=== PATIENT | female | born 1955 | race Caucasian/White ===

== ENCOUNTER 2023-08-09 11:06 | Inpatient (IN) | payer MEDICARE, OTHER ==
[~2023-08-09] VITALS: Ht 152.4 cm; Wt 101.0 kg
[2023-08-09 12:44] LABS: BASOPHILS % (AUTO) 0.6 % (0.0-2.0); EOSINOPHILS % (AUTO) 5.1 % (1.0-6.0); HEMATOCRIT 42.1 % (36-46); LYMPHOCYTES % (AUTO) 23.3 % (22.0-44.0); MEAN CORPUSCULAR HEMOGLOBIN 34.5 pg (26.0-34.0); MEAN CORPUSCULAR HGB CONC 33.4 G/dL (31.0-37.0); MEAN CORPUSCULAR VOLUME 104 fL (80-100); MONOCYTES # (AUTO) 0.7 K/uL (0.1-1.0); MONOCYTES % (AUTO) 7.8 % (2.0-9.0); NEUTROPHILS # (AUTO) 5.6 K/uL (1.8-7.7); NEUTROPHILS % (AUTO) 63.2 % (40.0-70.0); RED BLOOD CELL COUNT(AUTO) 4.06 MIL/uL (4.00-5.20); RED CELL DISTRIBUTION WIDTH 14.4 % (11.5-14.5); WHITE BLOOD COUNT (AUTO) 8.8 K/uL (4.5-11.0)
[2023-08-09 12:53] LABS: ANION GAP 10 mmol/L (8-16); CALCIUM, TOTAL 8.8 mg/dL (8.8-10.5); CARBON DIOXIDE 22 mmol/L (22-29); CHLORIDE 108 mmol/L (98-107); CREATININE 0.55 mg/dL (0.60-1.30); GLOMERULAR FILTR. RATE CALC > 60 mL/min (>60); GLUCOSE,RANDOM 97 mg/dL (70-110); SODIUM SERUM 140 mmol/L (136-145); UREA NITROGEN, BLOOD 12 mg/dL (7-18)
[2023-08-09 12:59] LABS: ALANINE AMINOTRANSFERASE 13 U/L (12-78); ALKALINE PHOSPHATASE 97 U/L (46-116); ASPARTATE AMINOTRANSFERASE 14 U/L (15-37); BILIRUBIN,TOTAL 0.3 mg/dL (0.1-1.0)
[2023-08-09 13:02] LABS: LACTIC ACID 1.6 mmol/L (0.4-2.0)
[2023-08-09 13:07] LABS: PLATELET COUNT (AUTO) 219 K/uL (150-450); RBC MORPHOLOGY COMMENT ABNORMAL RBC MORPH
[2023-08-09 20:09] LABS: COVID AG,FIA SOURCE NASAL SWAB
[2023-08-09 20:14] LABS: APPEARANCE,URINE HAZY (CLEAR); BILIRUBIN,URINE NEGATIVE (NEGATIVE); COLOR,URINE YELLOW (YELLOW); GLUCOSE, URINE (UA) NEGATIVE (NEGATIVE); KETONES,URINE TRACE mg/dL (NEGATIVE); LEUKOCYTE ESTERASE ,URINE SMALL (NEGATIVE); NITRATE,URINE NEGATIVE (NEGATIVE); OCCULT BLOOD,URINE NEGATIVE (NEGATIVE); PH,URINE 7.5 (5.0-8.0); PH,URINE DRUG SCREEN 7.5 (5.0-8.0); PROTEIN,URINE NEGATIVE (NEGATIVE); SPECIFIC GRAVITIY, URINE 1.011 (1.003-1.030); UROBILINOGEN,URINE <=1.0 mg/dL (<=1.0)
[2023-08-09 20:23] LABS: AMPHET/METH SCREEN,URINE NEGATIVE (NEGATIVE); BARBITURATE SCREEN, URINE POSITIVE (NEGATIVE); BENZODIAZEPINES SCREEN,URINE NEGATIVE (NEGATIVE); CANNABINOID SCREEN,URINE NEGATIVE (NEGATIVE); COCAINE SCREEN,URINE NEGATIVE (NEGATIVE); METHADONE SCREEN, URINE NEGATIVE (NEGATIVE); OPIATE SCREEN,URINE NEGATIVE (NEGATIVE); PHENCYCLIDINE SCREEN,URINE NEGATIVE (NEGATIVE)
[2023-08-09 20:24] LABS: ALCOHOL, URINE DRUG SCREEN NEGATIVE (NEGATIVE); BACTERIA,URINE Moderate /HPF (None Seen); RBC,URINE 0-2 /HPF (0-2); SQUAMOUS EPITHELIAL CELL,UR Few /LPF (None Seen)
[2023-08-09 20:27] LABS: SARS-COV2 (COVID) ANTIGEN,FIA Negative (Negative)
[2023-08-09] MEDS ORDERED: KETOROLAC TROMETHAMINE 30 MG/ML VIAL IM ONE (22:45)
[2023-08-10 20:45] VITALS: PULSE 96; RESP 18; O2SAT 95
[2023-08-10] MEDS ORDERED: ALBUTEROL SULFATE HFA 90 MCG/PUFF 8 GM INHALER IH ONE (20:45)
[2023-08-10] MEDS ORDERED: APIXABAN 5 MG TABLET PO ONE (21:45)
[2023-08-10] MEDS ORDERED: ALBUTEROL SULFATE HFA 90 MCG/PUFF 8 GM INHALER IH PRN ×2 (21:45→22:45)
[2023-08-10] MEDS ORDERED: BUDESONIDE/FORMOTEROL FUMARATE 160-4.5 MCG/PUFF 10.2 GM INHALER IH ONE (21:45)
[2023-08-10] MEDS ORDERED: GuaiFENesin/D-METHORPHAN [SUGAR-FREE] 200-20MG/10 ML SYRUP UDCUP PO PRN (21:45)
[2023-08-10] MEDS ORDERED: LORazepam 2 MG TABLET PO PRN (21:45)
[2023-08-10] MEDS ORDERED: OMEPRAZOLE 20 MG CAPSULE PO ONE (21:45)
[2023-08-10] MEDS ORDERED: LOPERAMIDE HCL 2 MG CAPSULE PO PRN (21:45)
[2023-08-10] MEDS ORDERED: DIVALPROEX SODIUM 500 MG ER TABLET PO ONE (21:45)
[2023-08-10] MEDS ORDERED: ZOLPIDEM TARTRATE 10 MG TABLET PO PRN (21:45)
[2023-08-10] MEDS ORDERED: OLANZapine 5 MG RAPDIS TABLET PO ONE (21:45)
[2023-08-10] MEDS ORDERED: MELATONIN 3 MG TABLET PO ONE (21:45)
[2023-08-10] MEDS ORDERED: PROMETHAZINE HCL 25 MG TABLET PO PRN (21:45)
[2023-08-10] MEDS ORDERED: MAGNESIUM HYDROXIDE SUSPENSION 30 ML UDCUP PO PRN (21:45)
[2023-08-10] MEDS ORDERED: MAG HYDROX/AL HYDROX/SIMETH ES 30 ML SUSPENSION UDCUP PO PRN (21:45)
[2023-08-10] MEDS ORDERED: TOPIRAMATE 100 MG TABLET PO ONE (22:00)
[2023-08-10] MEDS ORDERED: ACETAMINOPHEN 325 MG TABLET PO PRN (22:00)
[2023-08-10] MEDS ORDERED: OLANZapine 5 MG RAPDIS TABLET PO PRN (22:00)
[2023-08-10] MEDS: PHENobarbital 30 MG TABLET PO SCH (22:49)
[2023-08-11] MEDS ORDERED: ACETAMINOPHEN 325 MG TABLET PO PRN (05:30)
[2023-08-11] MEDS ORDERED: ALBUTEROL SULFATE 2.5 MG/0.5 ML NEB SOLUTION NEB PRN (05:30)
[2023-08-11] MEDS ORDERED: ONDANSETRON HCL 4 MG/2 ML VIAL IVP PRN (05:30)
[2023-08-11] MEDS ORDERED: IPRATROPIUM BROMIDE 0.5 MG/2.5 ML NEB SOLUTION NEB PRN (05:30)
[2023-08-11 06:11] LABS: BASOPHILS % (AUTO) 0.8 % (0.0-2.0); EOSINOPHILS % (AUTO) 4.7 % (1.0-6.0); HEMATOCRIT 39.6 % (36-46); HEMOGLOBIN 13.4 g/dL (12.0-16.0); LYMPHOCYTES # (AUTO) 2.4 K/uL (1.0-4.8); LYMPHOCYTES % (AUTO) 29.5 % (22.0-44.0); MEAN CORPUSCULAR HEMOGLOBIN 34.7 pg (26.0-34.0); MEAN CORPUSCULAR HGB CONC 33.9 G/dL (31.0-37.0); MEAN CORPUSCULAR VOLUME 102 fL (80-100); MONOCYTES # (AUTO) 0.9 K/uL (0.1-1.0); MONOCYTES % (AUTO) 11.5 % (2.0-9.0); NEUTROPHILS # (AUTO) 4.4 K/uL (1.8-7.7); NEUTROPHILS % (AUTO) 53.5 % (40.0-70.0); PLATELET COUNT (AUTO) 207 K/uL (150-450); RED BLOOD CELL COUNT(AUTO) 3.87 MIL/uL (4.00-5.20); RED CELL DISTRIBUTION WIDTH 14.2 % (11.5-14.5); WHITE BLOOD COUNT (AUTO) 8.2 K/uL (4.5-11.0)
[2023-08-11] MEDS: SODIUM CHLORIDE 0.9% 1,000 ML IV SCH (06:18)
[2023-08-11] MEDS: CefTRIAXone 1 GM/DEXTROSE 50 ML IV SCH (06:18)
[2023-08-11] MEDS ORDERED: LEVOTHYROXINE SODIUM 125 MCG TABLET PO ONE (06:30)
[2023-08-11] MEDS ORDERED: LEVOTHYROXINE SODIUM 125 MCG TABLET PO SCH (06:30)
[2023-08-11] MEDS: LEVOTHYROXINE SODIUM 125 MCG TABLET PO SCH (06:37)
[2023-08-11 06:57] LABS: ANION GAP 9 mmol/L (8-16); CALCIUM, TOTAL 8.9 mg/dL (8.8-10.5); CARBON DIOXIDE 23 mmol/L (22-29); CHLORIDE 108 mmol/L (98-107); CREATININE 0.55 mg/dL (0.60-1.30); GLOMERULAR FILTR. RATE CALC > 60 mL/min (>60); GLUCOSE,RANDOM 108 mg/dL (70-110); POTASSIUM 3.7 mmol/L (3.5-5.1); SODIUM SERUM 140 mmol/L (136-145); UREA NITROGEN, BLOOD 14 mg/dL (7-18)
[2023-08-11 07:03] LABS: ALANINE AMINOTRANSFERASE 23 U/L (12-78); ALBUMIN 2.6 g/dL (3.4-5.0); ALKALINE PHOSPHATASE 84 U/L (46-116); ASPARTATE AMINOTRANSFERASE 18 U/L (15-37); BILIRUBIN,TOTAL 0.4 mg/dL (0.1-1.0); TOTAL PROTEIN, SERUM 6.3 g/dL (6.4-8.2)
[2023-08-11 07:27] LABS: RBC MORPHOLOGY COMMENT ABNORMAL RBC MORPH
[2023-08-11] MEDS ORDERED: IOHEXOL 350 MG/ML 100 ML VIAL ONE (08:33)
[2023-08-11] MEDS ORDERED: SODIUM CHLORIDE 0.9% 100 ML ONE (08:33)
[2023-08-11] MEDS ORDERED: APIXABAN 5 MG TABLET PO SCH (09:00)
[2023-08-11] MEDS ORDERED: OMEGA-3/DHA/EPA/FISH OIL 1,000 MG CAPSULE PO ONE (09:00)
[2023-08-11] MEDS ORDERED: FOLIC ACID 1 MG TABLET PO ONE (09:00)
[2023-08-11] MEDS ORDERED: FLUoxetine HCL 20 MG CAPSULE PO ONE (09:00)
[2023-08-11] MEDS ORDERED: THIAMINE 100 MG TABLET PO ONE (09:00)
[2023-08-11] MEDS ORDERED: MULTIVITAMINS WITH MINERALS, THERAPEUTIC TABLET PO ONE (09:00)
[2023-08-11 09:47] VITALS: BP 152/75; PULSE 74; RESP 19; TEMP 97.8
[2023-08-11] MEDS: PHENobarbital 30 MG TABLET PO SCH ×2 (10:58→20:02)
[2023-08-11] MEDS: APIXABAN 5 MG TABLET PO SCH ×2 (10:58→20:02)
[2023-08-11] MEDS: TOPIRAMATE 100 MG TABLET PO SCH ×2 (11:01→20:02)
[2023-08-11] MEDS: THIAMINE 100 MG TABLET PO SCH ×2 (11:02→20:00)
[2023-08-11] MEDS: FOLIC ACID 1 MG TABLET PO SCH (11:02)
[2023-08-11] MEDS: MULTIVITAMINS WITH MINERALS, THERAPEUTIC TABLET PO SCH (11:02)
[2023-08-11] MEDS: OMEPRAZOLE 20 MG CAPSULE PO SCH ×2 (11:02→20:02)
[2023-08-11] MEDS: BUDESONIDE/FORMOTEROL FUMARATE 160-4.5 MCG/PUFF 10.2 GM INHALER IH SCH ×2 (11:03→20:03)
[2023-08-11 16:38] VITALS: BP 129/65; PULSE 71; RESP 19; TEMP 97.9
[2023-08-11 19:50] VITALS: BP 127/76; PULSE 81; RESP 18; TEMP 97.5
[2023-08-11] MEDS: MELATONIN 3 MG TABLET PO SCH (20:00)
[2023-08-11] MEDS: DIVALPROEX SODIUM 500 MG ER TABLET PO SCH (20:02)
[2023-08-11] MEDS: OLANZapine 10 MG RAPDIS TABLET PO SCH (20:02)
[2023-08-12] MEDS: SODIUM CHLORIDE 0.9% 1,000 ML IV SCH (00:44)
[2023-08-12] MEDS: CefTRIAXone 1 GM/DEXTROSE 50 ML IV SCH (05:39)
[2023-08-12] MEDS: LEVOTHYROXINE SODIUM 125 MCG TABLET PO SCH (06:15)
[2023-08-12 07:21] VITALS: BP 125/76; PULSE 72; RESP 18; TEMP 97.5
[2023-08-12] MEDS: PHENobarbital 30 MG TABLET PO SCH ×2 (08:26→20:21)
[2023-08-12] MEDS: FOLIC ACID 1 MG TABLET PO SCH (08:27)
[2023-08-12] MEDS: MULTIVITAMINS WITH MINERALS, THERAPEUTIC TABLET PO SCH (08:27)
[2023-08-12] MEDS: OMEGA-3/DHA/EPA/FISH OIL 1,000 MG CAPSULE PO SCH (08:27)
[2023-08-12] MEDS: TOPIRAMATE 100 MG TABLET PO SCH ×2 (08:27→20:21)
[2023-08-12] MEDS: FLUoxetine HCL 20 MG CAPSULE PO SCH (08:28)
[2023-08-12] MEDS: THIAMINE 100 MG TABLET PO SCH ×2 (08:28→20:21)
[2023-08-12] MEDS: OMEPRAZOLE 20 MG CAPSULE PO SCH ×2 (08:28→20:21)
[2023-08-12] MEDS: APIXABAN 5 MG TABLET PO SCH ×2 (08:28→20:20)
[2023-08-12 08:36] LABS: ANION GAP 10 mmol/L (8-16); CALCIUM, TOTAL 8.6 mg/dL (8.8-10.5); CARBON DIOXIDE 22 mmol/L (22-29); CHLORIDE 109 mmol/L (98-107); CREATININE 0.59 mg/dL (0.60-1.30); GLOMERULAR FILTR. RATE CALC > 60 mL/min (>60); GLUCOSE,RANDOM 95 mg/dL (70-110); POTASSIUM 4.4 mmol/L (3.5-5.1); SODIUM SERUM 141 mmol/L (136-145); UREA NITROGEN, BLOOD 8 mg/dL (7-18)
[2023-08-12] MEDS: BUDESONIDE/FORMOTEROL FUMARATE 160-4.5 MCG/PUFF 10.2 GM INHALER IH SCH ×2 (09:00→20:22)
[2023-08-12 10:49] LABS: BASOPHILS % (AUTO) 0.4 % (0.0-2.0); HEMATOCRIT 43.4 % (36-46); HEMOGLOBIN 14.2 g/dL (12.0-16.0); LYMPHOCYTES # (AUTO) 1.9 K/uL (1.0-4.8); LYMPHOCYTES % (AUTO) 22.3 % (22.0-44.0); MEAN CORPUSCULAR HEMOGLOBIN 34.6 pg (26.0-34.0); MEAN CORPUSCULAR HGB CONC 32.7 G/dL (31.0-37.0); MEAN CORPUSCULAR VOLUME 106 fL (80-100); MONOCYTES % (AUTO) 11.3 % (2.0-9.0); NEUTROPHILS # (AUTO) 5.3 K/uL (1.8-7.7); PLATELET COUNT (AUTO) 172 K/uL (150-450); RED CELL DISTRIBUTION WIDTH 14.7 % (11.5-14.5); WHITE BLOOD COUNT (AUTO) 8.5 K/uL (4.5-11.0)
[2023-08-12 11:43] LABS: RBC MORPHOLOGY COMMENT ABNORMAL RBC MORPH
[2023-08-12 15:22] VITALS: BP 134/71; PULSE 62; RESP 19; TEMP 98.2
[2023-08-12 19:20] VITALS: BP 133/79; PULSE 83; RESP 20; TEMP 97.6
[2023-08-12] MEDS: OLANZapine 10 MG RAPDIS TABLET PO SCH (20:20)
[2023-08-12] MEDS: MELATONIN 3 MG TABLET PO SCH (20:21)
[2023-08-12] MEDS: DIVALPROEX SODIUM 500 MG ER TABLET PO SCH (20:21)
[2023-08-13] MEDS: SODIUM CHLORIDE 0.9% 1,000 ML IV SCH ×2 (00:20→15:34)
[2023-08-13 03:45] VITALS: BP 133/69; PULSE 76; RESP 20; TEMP 97.8
[2023-08-13] MEDS: LEVOTHYROXINE SODIUM 125 MCG TABLET PO SCH (05:59)
[2023-08-13] MEDS: CefTRIAXone 1 GM/DEXTROSE 50 ML IV SCH (05:59)
[2023-08-13 08:05] VITALS: BP 130/70; PULSE 68; RESP 20; TEMP 98.3
[2023-08-13] MEDS: OMEPRAZOLE 20 MG CAPSULE PO SCH ×2 (08:54→20:52)
[2023-08-13] MEDS: TOPIRAMATE 100 MG TABLET PO SCH ×2 (08:54→20:51)
[2023-08-13] MEDS: APIXABAN 5 MG TABLET PO SCH ×2 (08:54→20:52)
[2023-08-13] MEDS: FLUoxetine HCL 20 MG CAPSULE PO SCH (08:54)
[2023-08-13] MEDS: MULTIVITAMINS WITH MINERALS, THERAPEUTIC TABLET PO SCH (08:54)
[2023-08-13] MEDS: OMEGA-3/DHA/EPA/FISH OIL 1,000 MG CAPSULE PO SCH (08:54)
[2023-08-13] MEDS: THIAMINE 100 MG TABLET PO SCH ×2 (08:54→20:51)
[2023-08-13] MEDS: PHENobarbital 30 MG TABLET PO SCH ×2 (09:11→20:51)
[2023-08-13] MEDS: FOLIC ACID 1 MG TABLET PO SCH (09:11)
[2023-08-13] MEDS ORDERED: NYSTATIN 30 GM CREAM TP SCH (11:30)
[2023-08-13] MEDS: BUDESONIDE/FORMOTEROL FUMARATE 160-4.5 MCG/PUFF 10.2 GM INHALER IH SCH (15:27)
[2023-08-13 16:06] LABS: COVID AG,FIA SOURCE NASAL SWAB
[2023-08-13 16:10] VITALS: BP 140/75; PULSE 78; RESP 20; TEMP 98
[2023-08-13 16:47] LABS: SARS-COV2 (COVID) ANTIGEN,FIA Negative (Negative)
[2023-08-13 17:00] VITALS: BP 135/73; PULSE 79; RESP 20; TEMP 98.1
[2023-08-13 20:06] VITALS: BP 137/72; PULSE 83; RESP 20; TEMP 97.7
[2023-08-13] MEDS: DIVALPROEX SODIUM 500 MG ER TABLET PO SCH (20:51)
[2023-08-13] MEDS: MELATONIN 3 MG TABLET PO SCH (20:52)
[2023-08-13] MEDS: OLANZapine 10 MG RAPDIS TABLET PO SCH (20:52)
== END 2023-08-13 21:05 | DRG 690 ==
LOC: EMS 11:33 → 6S 08-11 06:45
PROVIDERS: ADMIT Internal Medicine; ATTEND Internal Medicine
DX: N10 Acute pyelonephritis (principal); Z68.41 Body mass index [BMI] 40.0-44.9, adult; G93.40 Encephalopathy, unspecified; E66.01 Morbid (severe) obesity due to excess calories; I10 Essential (primary) hypertension; G40.909 Epilepsy, unspecified, not intractable, without status epilepticus; R09.02 Hypoxemia; F25.9 Schizoaffective disorder, unspecified; K21.9 Gastro-esophageal reflux disease without esophagitis; F41.9 Anxiety disorder, unspecified; M17.12 Unilateral primary osteoarthritis, left knee; F10.21 Alcohol dependence, in remission; I48.91 Unspecified atrial fibrillation; F31.9 Bipolar disorder, unspecified; Z20.822 Contact with and (suspected) exposure to COVID-19; J44.9 Chronic obstructive pulmonary disease, unspecified; E03.9 Hypothyroidism, unspecified; Z87.440 Personal history of urinary (tract) infections; Z79.01 Long term (current) use of anticoagulants; Z89.511 Acquired absence of right leg below knee; Z88.5 Allergy status to narcotic agent; Z88.6 Allergy status to analgesic agent
CPT/HCPCS: 70450; 72170; 74177; 80048; 80053; 80184; 80307; 81001; 83605; 83735; 85025; 87086; 87186; 93005; 97163; 97530; 99285; J0696; J1885; J3535; J7030; J7050; Q9967

== ENCOUNTER 2023-08-20 15:58 | Inpatient (IN) | payer MEDICARE, OTHER ==
[~2023-08-20] VITALS: Ht 152.4 cm; Wt 102.6 kg
[~2023-08-20 15:58] MED LIST: APIX5TAB PO; BUDE10.26 IH; DIVA500T69 PO; FLUO20CA36 PO; FOLI-130 PO; LEVO125 PO; MELA5TAB40 PO; MULT-1239 PO; NALT50TA PO; NYST15PO4 TP; NYST30CR9 TP; OLAN10TA26 PO; OMEG-135 PO; OMEP20 PO; THIA100T80 PO
[2023-08-20] MEDS ORDERED: BISACODYL 10 MG RECTAL RECTAL SUPPOSITORY PR PRN (18:15)
[2023-08-20] MEDS ORDERED: IPRATROPIUM BROMIDE 0.5 MG/2.5 ML NEB SOLUTION NEB PRN (18:15)
[2023-08-20] MEDS ORDERED: PHENYTOIN SODIUM 1,000 MG in SODIUM CHLORIDE 0.9% 150 ML IV ONE (18:15)
[2023-08-20] MEDS ORDERED: ONDANSETRON HCL 4 MG/2 ML VIAL IVP PRN (18:15)
[2023-08-20] MEDS ORDERED: ALBUTEROL SULFATE 2.5 MG/0.5 ML NEB SOLUTION NEB PRN (18:15)
[2023-08-20] MEDS ORDERED: MAGNESIUM HYDROXIDE SUSPENSION 30 ML UDCUP PO PRN (18:15)
[2023-08-20] MEDS ORDERED: ZOLPIDEM TARTRATE 5 MG TABLET PO PRN (18:15)
[2023-08-20] MEDS ORDERED: ACETAMINOPHEN 325 MG TABLET PO PRN (18:15)
[2023-08-20 18:51] VITALS: BP 138/62; PULSE 88; RESP 22; TEMP 98.6; O2SAT 89
[2023-08-20 20:18] VITALS: BP 117/66; PULSE 91; RESP 20; TEMP 98.3
[2023-08-20] MEDS: BUDESONIDE/FORMOTEROL FUMARATE 160-4.5 MCG/PUFF 10.2 GM INHALER IH SCH (21:00)
[2023-08-20] MEDS ORDERED: MELATONIN 5 MG TABLET PO SCH (21:00)
[2023-08-20] MEDS: THIAMINE 100 MG TABLET PO SCH (21:00)
[2023-08-20] MEDS ORDERED: DIVALPROEX SODIUM 500 MG ER TABLET PO SCH (21:00)
[2023-08-20] MEDS: DOCUSATE SODIUM 100 MG CAPSULE PO SCH (21:00)
[2023-08-20] MEDS ORDERED: OLANZapine 10 MG RAPDIS TABLET PO SCH (21:00)
[2023-08-20] MEDS ORDERED: OMEPRAZOLE 20 MG CAPSULE PO SCH (21:00)
[2023-08-20] MEDS: APIXABAN 5 MG TABLET PO SCH (21:01)
[2023-08-20] MEDS: NYSTATIN 30 GM CREAM TP SCH (21:44)
[2023-08-20] MEDS: NYSTATIN 15 GM POWDER BOTTLE TP SCH (21:44)
[2023-08-21] MEDS ORDERED: HEPARIN SODIUM,PORCINE 5,000 UNITS/ML VIAL SQ SCH
[2023-08-21 00:26] VITALS: BP 98/48; PULSE 87; RESP 20; TEMP 98.7
[2023-08-21 02:38] VITALS: BP 136/67; RESP 20
[2023-08-21 04:48] VITALS: BP 94/44; PULSE 67; RESP 19; TEMP 98.2
[2023-08-21] MEDS ORDERED: LEVOTHYROXINE SODIUM 125 MCG TABLET PO SCH (06:30)
[2023-08-21 07:29] VITALS: BP 120/66; PULSE 64; RESP 18; TEMP 98.2
[2023-08-21] MEDS: APIXABAN 5 MG TABLET PO SCH (08:35)
[2023-08-21] MEDS: THIAMINE 100 MG TABLET PO SCH (08:35)
[2023-08-21] MEDS: NYSTATIN 30 GM CREAM TP SCH (08:37)
[2023-08-21] MEDS: BUDESONIDE/FORMOTEROL FUMARATE 160-4.5 MCG/PUFF 10.2 GM INHALER IH SCH (08:37)
[2023-08-21] MEDS: NYSTATIN 15 GM POWDER BOTTLE TP SCH (08:37)
[2023-08-21] MEDS ORDERED: PHENYTOIN SODIUM 100 MG ER CAPSULE PO SCH ×2 (09:00→21:00)
[2023-08-21] MEDS: DOCUSATE SODIUM 100 MG CAPSULE PO SCH (09:00)
[2023-08-21] MEDS ORDERED: FOLIC ACID 1 MG TABLET PO SCH (09:00)
[2023-08-21] MEDS ORDERED: PANTOPRAZOLE SODIUM 40 MG/VIAL IVP SCH (09:00)
[2023-08-21] MEDS ORDERED: NALTREXONE HCL 50 MG TABLET PO SCH (09:00)
[2023-08-21] MEDS ORDERED: OMEGA-3/DHA/EPA/FISH OIL 1,000 MG CAPSULE PO SCH (09:00)
[2023-08-21] MEDS ORDERED: FLUoxetine HCL 20 MG CAPSULE PO SCH (09:00)
[2023-08-21] MEDS ORDERED: MULTIVITAMINS WITH MINERALS, THERAPEUTIC TABLET PO SCH (09:00)
[2023-08-21] MEDS ORDERED: LEVE500T8 PO (11:06)
[2023-08-21] MEDS ORDERED: LevETIRAcetam 500 MG TABLET PO SCH (11:15)
[2023-08-21 11:16] VITALS: BP 122/61; PULSE 61; RESP 18; TEMP 98
== END 2023-08-21 13:55 | disposition home or self-care (01) | DRG 101 ==
LOC: ICU 16:00 → 5S 18:40
PROVIDERS: ADMIT Hospitalist; ATTEND Hospitalist
DX: R56.9 Unspecified convulsions (principal); Z68.41 Body mass index [BMI] 40.0-44.9, adult; I10 Essential (primary) hypertension; F41.9 Anxiety disorder, unspecified; K21.9 Gastro-esophageal reflux disease without esophagitis; M19.90 Unspecified osteoarthritis, unspecified site; I48.91 Unspecified atrial fibrillation; E66.9 Obesity, unspecified; F31.9 Bipolar disorder, unspecified; J44.9 Chronic obstructive pulmonary disease, unspecified; E03.9 Hypothyroidism, unspecified; Z87.440 Personal history of urinary (tract) infections; Z88.5 Allergy status to narcotic agent; Z88.6 Allergy status to analgesic agent; Z79.899 Other long term (current) drug therapy
CPT/HCPCS: 99285; C9113; J1165; J7050; Q9967